=== PATIENT | female | born 1985 | race Caucasian/White ===

== ENCOUNTER 2016-10-28 02:01 | Emergency (ER) | payer SELFPAY ==
[2016-10-28 02:07] VITALS: BMI 33.7
[2016-10-28 02:15] VITALS: PULSE 94; TEMP 97.6
[2016-10-28] MEDS ORDERED: NS 1,000 ML IV ONE (02:23)
--- NOTE | 2016-10-28 02:27 | EDPRACDOC ---
- General Information Chief Complaint: Neuro Symptoms/Deficits Stated Complaint: SYNCOPE Time Seen by Provider: 10/28/16 02:20 Information Source: Patient Home Medications: Home Medications No Home Medications 0 NA DIR 11/21/12 Allergies/Adverse Reactions: Allergies Allergy/AdvReac Type Severity Reaction Status Date / Time codeine [Codeine] Allergy Unknown Nausea/Vomi Verified 07/03/12 16:44 ting - History of Present Illness Onset: [employer] Medications/Treatment [employer] Treatment BLS HPI: PATIENT STATES SHE WENT TO [place] AND SAW HIM WITH ANOTHER GIRL. SHE SUDDENLY WOKE ON THE GROUND. NO CHEST PAIN. NO HEADACHE Presyncopal phase:: Reports: Emotions Syncopal phase:: Reports: At Rest Postsyncopal phase:: Reports: Rapid recovery History of: Reports: Atrial Fibrillation Associated Signs/Symptoms: Reports: Palpitations - Treatment Prior to ED Arrival Reported Medications/Treatment [employer] Treatment BLS ED Past Medical History - History Reviewed Yes Nurses notes reviewed and agree except as marked Travel Outside of [place] in the Last 3 Months?: No - Patient Medical History Cardiac History: Reports: Atrial Fibrillation Psychological History: Denies: Depression - Social Medical History Smoking Status: Never smoker ETOH: None Substance Abuse: None Lives With: Family Lives In: Home EDM Review of Systems - Review of Systems ROS Negative Except as Marked: Yes All systems reviewed and were negative except as marked Constitutional: No Symptoms Reported. negative: Fever, Chills, Weakness, Fatigue, Loss of Appetite Eyes: No Symptoms Reported. negative: Redness, Blurred Vision, Double Vision, Discharge, Pain, Light Sensitive, Photophobia Ears: No Symptoms Reported. negative: Pain, Hearing Loss, Drainage, Ear Pulling Throat: No Symptoms Reported. negative: Pain, Swelling Nose: No Symptoms Reported. negative: Congestion, Bleeding, Discharge, Injection, Swelling, Deformity, Ecchymosis, Tender, Abrasion, Laceration Mouth: No Symptoms Reported. negative: Pain, Drooling Respiratory: No Symptoms Reported. negative: Cough, Brassy Cough, Barky Cough, Shortness of Breath, Wheezing, Hemoptysis Cardiovascular: Syncope. negative: Chest Pain, Cyanosis, Edema, Orthopnea, Palpitations, PND, Skin Mottling Gastrointestinal: No Symptoms Reported. negative: Pain, Constipation, Nausea, Vomiting, Diarrhea, Melena, Formula Intolerance Genitourinary: No Symptoms Reported. negative: Dysuria, Hematuria, Frequency, Discharge, Bleeding, Testicular Pain, Neurological: No Symptoms Reported. negative: Headache, Dizziness, Seizure, Numbness, Weakness, Speech Difficulty, Gait Difficulty Musculoskeletal: No Symptoms Reported. negative: Neck, Chestwall, Ribs, Back, Shoulder, Arm, Elbow, Forearm, Wrist, Hand, Pelvis, Hip, Femur, Knee, Leg, Ankle , Foot Integumentary: No Symptoms Reported. negative: Itching, Rash, Bruising, Wound Allergic/Immunologic: No Symptoms Reported. negative: Hives, Itching Hematologic: No Symptoms Reported. negative: Lymphadenopathy, Easy Bruising, Easy Bleeding Endocrine: No Symptoms Reported. negative: Weight Gain, Weight Loss Psychiatric: No Symptoms Reported. negative: Anxiety, Depression, Hallucinations, Insomnia, Suicidal - Physical Exam Constitutional: Alert (Awake), No apparent distress Oriented to: Time, Person, Place Last recorded Vital Signs: Last Vital Signs Temp 97.6 F 10/28/16 02:09 Pulse 94 10/28/16 02:09 Resp 20 10/28/16 02:09 BP 136/103 H 10/28/16 02:09 Pulse Ox 99 10/28/16 02:09 Oxygen Pulse Oxygen Saturation 99 O2 Device Room Air Oxygen Flow Rate Fraction of Inspired Oxygen ( FIO2) - HEENT Head: Normal ( normocephalic) Eye Exam: Normal (PERRL, EOMI, Sclera white) Oropharynx: Normal (Pharynx:Moist without exudate,Gums-no swelling) Tympanic Membrane: Normal ENT EAC: Normal TMJ: Normal Nose: No Symptoms Reported (septum midline) Neck: Normal (FROM, trachea at midline) - Respiratory/Cardiovascular Respiratory: Normal - CTA (BBS clear to auscultation without adventitious sounds ) Cardiovascular: Normal (RRR without murmur, gallop or rub) - GI Auscultation: Normal (NABS) Palpation: Normal (Soft,No rebound or guarding, non distended) Tenderness: Non tender Boswell's Sign: Negative - Musculoskeletal Back: Normal (Non-Tender) Extremities: Normal (Normal tone, Pulses 2+ No cyanosis or edema, FROM) - Integumentary Skin: Normal, Warm, Dry Lymphatics: Normal (no adenopathy) - Neurologic Memory Impaired: Normal Motor Function: Normal (Normal tone, Pulses 2+ No cyanosis or edema, FROM) Cranial Nerve: Normal (CN II-X11 intact sensation, strength 5/5) Cerebellar: Normal Mood Description: Normal Perception: Normal - Results 10/28/16 02:30 10/28/16 02:30 - EKG EKG #1 EKG Time: 02:16 -: Yes EKG interpreted by me Rate: bpm: 87 [place]: RAD Rhythm: NSR Block: None Hypertrophy: None ST: Normal Decision Time to Discharge: 03:02 - Departure Yes I personally saw and evaluated the patient. Disposition: Home Condition: Good Final Diagnosis: ETOH abuse Syncope Qualifiers: Syncope type: unspecified Qualified Code(s): R55 - Syncope and collapse Instructions: Syncope (ED) Education/Counseling Given To: Patient Education/Counseling Given Regarding: Diagnosis, Treatment, Prognosis, Follow Up Referrals: None,No Provider [Primary Care Provider] - One Week Prescriptions: No Action No Home Medications 0 NA DIR
[2016-10-28 02:47] LABS: AUTOMATED BASOPHIL 1.2 % (0-2); AUTOMATED EOSINOPHIL 1.8 % (0-5); AUTOMATED LYMPH 24.5 % (17-44); AUTOMATED NEUTROPHIL 66.5 % (45-76); MPV 7.5 fL (7.4-10.4)
[2016-10-28 02:49] LABS: ALL NEG? YES; MDMA* NEG (NEGATIVE); METHAMPHETAMINES NEG (NEGATIVE); OXYCODONE NEG (NEGATIVE)
[2016-10-28 02:56] LABS: BLOOD UREA NITROGEN 6 MG/DL (7-17); CALCULATED OSMOLALITY 269 MOs/Kg (270-290); CHLORIDE 99 mEq/L (98-107); ETOH-MGDL 197 mg/dL; GLUCOSE 100 mg/dL (70-99); SODIUM LEVEL 141 mEq/L (137-146)
[2016-10-28 03:05] VITALS: BP 125/85
== END 2016-10-28 03:26 | disposition home or self-care (01) ==
LOC: ED 02:01
DX: F10.10 Alcohol abuse, uncomplicated (principal)
CPT/HCPCS: 36415; 80048; 80307; 81025; 85025; 93005; 96360; 99283